=== PATIENT | female | born 1985 | race Caucasian/White ===

== ENCOUNTER 2017-07-04 10:40 | Emergency (ER) | payer MEDICAID, OTHER ==
[~2017-07-04] VITALS: Ht 157.5 cm; Wt 79.0 kg
[~2017-07-04 10:40] MED LIST: DSS100 PO; IBUP-2071 PO; NIFE10CA PO; PERCT PO; PHEN50TA PO; PREN1TAB80 PO
[2017-07-04 11:27] VITALS: BP 134/75
== END 2017-07-04 11:59 | disposition home or self-care (01) ==
LOC: EMS 10:44
DX: L40.9 Psoriasis, unspecified (principal); I10 Essential (primary) hypertension; F15.90 Other stimulant use, unspecified, uncomplicated; Z88.0 Allergy status to penicillin; Z91.018 Allergy to other foods
CPT/HCPCS: 99283